=== PATIENT | female | born 1935 | race Caucasian/White ===

== ENCOUNTER 2016-08-08 | Outpatient (CLI) | END 2016-08-08 09:13 | disposition critical access hospital (66) | CPT/HCPCS: A0425; A0429 ==

== ENCOUNTER 2016-08-08 09:34 | Emergency (ER) | END 2016-08-08 13:56 | disposition home or self-care (01) ==

== ENCOUNTER 2020-04-10 20:37 | Outpatient (CLI) | payer OTHER | END 2020-04-10 20:38 | disposition critical access hospital (66) | LOC: EMS 20:37 | PROVIDERS: ATTEND Surgery | DX: R55 Syncope and collapse (principal); R53.1 Weakness; R53.83 Other fatigue | CPT/HCPCS: A0425; A0427 ==

== ENCOUNTER 2020-04-10 20:58 | Emergency (ER) | payer MEDICARE, OTHER ==
[2020-04-10] MEDS ORDERED: SODIUM CHLORIDE 0.9% 1,000 ML IV STA (21:19)
--- NOTE | 2020-04-10 21:26 | ED Physician Documentation ---
PD HPI SYNCOPE - Stated complaint Stated Complaint: SYNCOPE - Chief complaint Chief Complaint: Neuro - History obtained from History obtained from: Patient, Family, EMS - History of Present Illness Witnessed: Witnessed Timing - onset: Today Duration: Seconds Preceding symptoms: None Associated symptoms: Nausea / vomiting, Other (light headed and dizzy) Contributing factors: Emotional upset (still greiving over husbands in November) Injury occurred: None Treatment HOST/HOSTESS RESTAURANT: Fluids Similar symptoms before: Has not had sx before Recently seen: Not recently seen - Additional information Additional information: 84-year-old female with history of hypertension and spinal stenosis was sitting playing ScrMobicowble this evening when she stood up and had a sudden syncopal episode. She states that she had no warning for this and she recalls when she came to she was nauseous vomited and felt dizzy and lightheaded. She did not injure herself with the incident. She did not feel ill prior to this and felt that over the past week she has had her normal health. She has no specific symptoms. Review of Systems Constitutional: denies: Fever, Chills Eyes: denies: Decreased vision Ears: denies: Ear pain Nose: denies: Congestion Throat: denies: Sore throat Cardiac: denies: Chest pain / pressure, Palpitations Respiratory: denies: Dyspnea, Cough GI: reports: Nausea (With the episode), Vomiting. denies: Abdominal Pain, Constipation, Diarrhea : denies: Dysuria, Frequency Skin: denies: Rash Musculoskeletal: reports: Back pain (Severe). denies: Neck pain, Extremity pain Neurologic: reports: Syncope. denies: Generalized weakness, Focal weakness, Numbness, Seizure, Altered mental status, Headache, Head injury PD PAST MEDICAL HISTORY - Past Medical History Cardiovascular: Hypertension, High cholesterol Musculoskeletal: Osteoarthritis, Chronic back pain - Past Surgical History Past Surgical History: No - Present Medications Home Medications: Ambulatory Orders Medication Instructions Recorded Confirmed Aspirin [Aspir-Low] 0 mg 08/08/16 Atenolol 0 mg 08/08/16 Ondansetron Odt [Zofran] 4 mg TL Q6H PRN #10 tablet 08/08/16 Simvastatin 0 mg 08/08/16 - Allergies Allergies/Adverse Reactions: Allergies Allergy/AdvReac Type Severity Reaction Status Date / Time No Known Drug Allergies Allergy Verified 08/08/16 09:40 - Social History Does the pt smoke?: No Smoking Status: Never smoker Does the pt drink ETOH?: Yes Does the pt have substance abuse?: No PD ED PE NORMAL - Vitals Vital signs reviewed: Yes (Normal) - General General: Alert and oriented X 3, No acute distress, Well developed/nourished, Other (Patient appears pale and dry) - HEENT HEENT: Atraumatic, PERRL - Neck Neck: Supple, no meningeal sign, No bony TTP - Cardiac Cardiac: RRR, No murmur - Respiratory Respiratory: No respiratory distress, Clear bilaterally - Abdomen Abdomen: Normal bowel sounds, Soft, Non tender, Non distended, No organomegaly - Back Back: No CVA TTP, No spinal TTP - Derm Derm: Normal color, Warm and dry, No rash - Extremities Extremities: No deformity, Normal ROM s pain, No edema - Neuro Neuro: Alert and oriented X 3, launch manager 2-12 intact, No motor deficit, No sensory deficit, Normal speech Eye Opening: To Voice Motor: Obeys Commands Verbal: Oriented GCS Score: 14 - Psych Psych: Normal mood, Normal affect Results - Vitals Vitals: Vital Signs - 24 hr 04/10/20 04/10/20 04/10/20 21:21 21:41 21:59 Temperature 36.2 C L Heart Rate 63 66 71 Respiratory 20 16 16 Rate Blood Pressure 130/72 137/64 H O2 Saturation 97 100 100 04/10/20 04/10/20 04/11/20 22:32 23:02 00:02 Temperature Heart Rate 66 71 Respiratory 17 16 16 Rate Blood Pressure 112/69 116/70 O2 Saturation 97 94 04/11/20 04/11/20 04/11/20 01:14 01:47 02:05 Temperature Heart Rate 71 71 Respiratory 17 17 11 L Rate Blood Pressure 132/67 H 131/72 H O2 Saturation 96 98 04/11/20 02:30 Temperature Heart Rate 70 Respiratory 16 Rate Blood Pressure 131/72 H O2 Saturation 99 Oxygen O2 Source Room air - EKG (time done) 2104 Rate: Rate (enter#) (62) Rhythm: NSR [place]: LAD Intervals: Prolonged MS Ischemia: Normal ST segments, Q waves Compare to prior EKG: Old EKG unavailable Computer interpretation: Agree with computer - Labs Labs: Laboratory Tests 04/10/20 04/10/20 04/10/20 21:35 21:35 21:35 WBC 6.3 RBC 4.04 L Hgb 13.8 Hct 41.5 MCV 102.7 H MCH 34.2 H MCHC 33.3 RDW 12.0 Plt Count 207 MPV 8.9 Neut # (Auto) 4.7 Lymph # (Auto) 1.0 L [place] # (Auto) 0.5 Eos # (Auto) 0.0 Baso # (Auto) 0.0 Absolute Nucleated RBC 0.00 Nucleated RBC % 0.0 Sodium 131 L Potassium 4.0 Chloride 95 L Carbon Dioxide 23 Anion Gap 13.0 BUN 23 H Creatinine 0.8 Estimated GFR (MDRD) 68 L Glucose 85 Lactic Acid Calcium 9.4 Total Bilirubin 0.7 AST 28 ALT 22 Alkaline Phosphatase 48 Troponin I High Sens B-Natriuretic Peptide 25 Total Protein 8.0 Albumin 4.4 Globulin 3.6 Albumin/Globulin Ratio 1.2 Lipase 41 Urine Color Urine Clarity Urine pH Ur Specific [place] Urine Protein Urine Glucose (UA) Urine Ketones Urine Occult Blood Urine Nitrite Urine Bilirubin Urine Urobilinogen Ur Leukocyte Esterase Ur Microscopic Review Urine Culture Comments 04/10/20 04/10/20 04/11/20 21:35 21:35 01:00 WBC RBC Hgb Hct MCV MCH MCHC RDW Plt Count MPV Neut # (Auto) Lymph # (Auto) [place] # (Auto) Eos # (Auto) Baso # (Auto) Absolute Nucleated RBC Nucleated RBC % Sodium Potassium Chloride Carbon Dioxide Anion Gap BUN Creatinine Estimated GFR (MDRD) Glucose Lactic Acid 2.9 H Calcium Total Bilirubin AST ALT Alkaline Phosphatase Troponin I High Sens 3.2 B-Natriuretic Peptide Total Protein Albumin Globulin Albumin/Globulin Ratio Lipase Urine Color YELLOW Urine Clarity CLEAR Urine pH 6.5 Ur Specific [place] 1.020 Urine Protein NEGATIVE Urine Glucose (UA) NEGATIVE Urine Ketones TRACE Urine Occult Blood TRACE-LYSE Urine Nitrite NEGATIVE Urine Bilirubin NEGATIVE Urine Urobilinogen 0.2 (NORMAL) Ur Leukocyte Esterase NEGATIVE Ur Microscopic Review NOT INDICATED Urine Culture Comments NOT INDICATED - Rads (name of study) chest Radiology: Prelim report reviewed (Impression: 1. No acute findings.), EMP read indepedently, See rad report PD MEDICAL DECISION MAKING - ED course Complexity details: reviewed old records, reviewed results, re-evaluated patient, considered differential, d/w patient, d/w family ED course: 84-year-old female who had a syncopal episode when she stood up from playing Scrabble is found to be significantly dehydrated. She has elevation in her BUN isolated as well as an elevated lactate. She indicates that she has had a can of Ensure to drink today. She is living in a non-air conditioned home. She is administered intravenous saline and after the first liter is and she feels some better, but has not produced urine. A second liter is run in and about the time she has received 1500 mL's of saline when I returned to her room she is feeling much better she has a broad smile on her face and her eyes are wide. She vows to drink more fluids. Departure - Departure Disposition: 01 Home, Self Care Clinical Impression: Dehydration Syncope Qualifiers: Syncope type: heat syncope Encounter type: initial encounter Qualified Code(s): T67.1XXA - Heat syncope, initial encounter Condition: Stable Instructions: ED Dehydration, ED Syncope Vasovagal Follow-Up: CHANDA BRAY MD [Primary Care Provider] - Discharge Date/Time: 04/11/20 02:36
[2020-04-10 21:51] LABS: BASOPHILS % (AUTO) 0.6 %; EOSINOPHILS % (AUTO) 0.6 %; HGB - HEMOGLOBIN 13.8 g/dL (12.0-16.0); LYMPHOCYTES % (AUTO) 15.5 %; MEAN CORPUSCULAR HEMOGLOBIN 34.2 pg (27.0-31.0); MEAN CORPUSCULAR HGB CONC 33.3 g/dL (32.0-36.0); MEAN CORPUSCULAR VOLUME 102.7 fL (81.0-99.0); MEAN PLATELET VOLUME 8.9 fL (7.9-10.8); MONOCYTES # (AUTO) 0.5 10^3/uL (0.0-1.0); MONOCYTES % (AUTO) 8.2 %; NEUTROPHILS # (AUTO) 4.7 10^3/uL (1.5-6.6); NEUTROPHILS % (AUTO) 74.6 %; PLT - PLATELET COUNT 207 10^3/uL (130-450); RED BLOOD COUNT 4.04 10^6/uL (4.20-5.40); WHITE BLOOD COUNT 6.3 x10^3/uL (4.8-10.8)
[2020-04-10 22:15] LABS: ALBUMIN 4.4 g/dL (3.2-5.5); ALBUMIN/GLOBULIN RATIO 1.2 (1.0-2.2); BILIRUBIN,TOTAL 0.7 mg/dL (0.2-1.0); CALCIUM 9.4 mg/dL (8.5-10.3); CREATININE 0.8 mg/dL (0.4-1.0)
[2020-04-11] MEDS ORDERED: SODIUM CHLORIDE 0.9% 1,000 ML IV STA (00:02)
[2020-04-11 01:48] LABS: BILIRUBIN,URINE NEGATIVE (NEGATIVE); GLUCOSE, URINE (UA) NEGATIVE (NEGATIVE); KETONES,URINE (UA) TRACE mg/dL (NEGATIVE); LEUKOCYTE ESTERASE, URINE NEGATIVE (NEGATIVE); NITRITE,URINE NEGATIVE (NEGATIVE); OCCULT BLOOD,URINE TRACE-LYSE (NEGATIVE); PH,URINE 6.5 PH (5.0-7.5); PROTEIN,URINE NEGATIVE (NEGATIVE); UROBILINOGEN,URINE 0.2 (NORMAL) E.U./dL (NORMAL)
[2020-04-11 01:49] LABS: CLARITY,URINE CLEAR (CLEAR)
[2020-04-11 02:05] VITALS: BP 131/72
--- NOTE | 2020-04-11 09:21 | XRAY Report ---
PROCEDURE: Chest 1 View X-Ray INDICATIONS: chest pain TECHNIQUE: One view of the chest was acquired. COMPARISON: None available on the PACS system at the time of this dictation. FINDINGS: Surgical changes and devices: None. Lungs and pleura: No pleural effusions or pneumothorax. Lungs are clear. Mediastinum: The aorta is prominent and tortuous. The cardiac contours are within normal limits. Bones and chest wall: No suspicious bony lesions. Age-appropriate degenerative changes are seen. M inimal S-shaped sclerotic curvature is seen. Overlying soft tissues appear unremarkable. IMPRESSION: No significant abnormality is seen for age. Note: No significant discrepancy from the preliminary report. Reviewed by: Cody Vitale MD on 04/11/2020 8:20 AM CLARE Approved by: Cody Vitale MD on 04/11/2020 8:20 AM CLARE Station ID: [id number]
== END 2020-04-11 02:36 | disposition home or self-care (01) ==
LOC: EDUNIT# → EDBD → ED 20:58
DX: E86.0 Dehydration (principal); T67.1XXA Heat syncope, initial encounter
CPT/HCPCS: 36415; 71045; 80053; 81001; 81003; 83605; 83690; 83880; 84484; 85025; 87086; 93005; 96360; 96361; 99284

== ENCOUNTER 2021-04-22 14:54 | Outpatient (CLI) | payer MEDICARE | END 2021-04-22 14:55 | disposition critical access hospital (66) | LOC: EMS 14:54 | DX: R53.1 Weakness (principal) | CPT/HCPCS: A0425; A0427 ==

== ENCOUNTER 2021-04-22 15:26 | Inpatient (IN) | payer MEDICARE ==
--- NOTE | 2021-04-22 16:01 | ED Physician Documentation ---
History of Present Illness - Stated complaint Stated Complaint: NEAR SYNCOPAL - Chief complaint Chief Complaint: General - History obtained from History obtained from: Patient - Additonal information Additional information: 5-year-old woman who was working out in her garden weeding When her neighbor sat high so she stood up quickly, lost her balance and fell onto her left side. This happened approximately an hour prior to presentation. She did not hit her head. She does not know if she passed out but she was told that she vomited 1 time and she does not remember it. Her only pain is to move her left hip. She denies any neck pain. Has no numbness or tingling into the arms or legs. She has not recently been ill. Review of Systems Constitutional: denies: Fever Eyes: denies: Loss of vision Ears: denies: Tinnitus/ringing Nose: denies: Congestion Throat: denies: Sore throat Cardiac: denies: Palpitations Respiratory: denies: Dyspnea GI: reports: Vomiting. denies: Nausea : denies: Dysuria Musculoskeletal: reports: Joint pain (L hip pain). denies: Neck pain Neurologic: reports: LOC (Possible). denies: Headache, Head injury PD PAST MEDICAL HISTORY - Past Medical History Cardiovascular: Hypertension, High cholesterol Respiratory: None Neuro: None Endocrine/Autoimmune: None GI: None MANAGER CLINICAL PHARMACY: None : None HEENT: None Psych: None Musculoskeletal: Osteoarthritis, Chronic back pain Derm: None - Past Surgical History Past Surgical History: No - Present Medications Home Medications: Ambulatory Orders Medication Instructions Recorded Confirmed Simvastatin 0 mg DAILY 08/08/16 traMADol [Ultram] 1 tab DAILY PRN 04/22/21 04/22/21 - Allergies Allergies/Adverse Reactions: Allergies Allergy/AdvReac Type Severity Reaction Status Date / Time No Known Drug Allergies Allergy Verified 04/22/21 15:31 - Social History Does the pt smoke?: No Smoking Status: Never smoker Does the pt drink ETOH?: Yes Does the pt have substance abuse?: No - Immunizations Immunizations are current?: Yes - POLST Patient has POLST: No PD ED PE NORMAL - Vitals Vital signs reviewed: Yes - General General: Alert and oriented X 3, No acute distress, Well developed/nourished - HEENT HEENT: Atraumatic, PERRL, EOMI - Neck Neck: Other (Patinet in C-collar, no pain to ML palpation or movement. Clinically cleared and collar removed) - Cardiac Cardiac: RRR, No murmur - Respiratory Respiratory: No respiratory distress, Clear bilaterally - Abdomen Abdomen: Normal bowel sounds, Soft, Non tender, Non distended - Extremities Extremities: No edema, Other (L hip tender over greater trochanter and along L thigh. 2+ dp pulses bilat. No knee pain bilat) - Neuro Neuro: Alert and oriented X 3, facilities maintenance technician 2-12 intact, No motor deficit, No sensory deficit, Normal speech - Psych Psych: Normal mood Results - Vitals Vitals: Vital Signs - 24 hr 04/22/21 04/22/21 15:25 15:53 Temperature 36.4 C L Heart Rate 69 62 Respiratory 16 8 L Rate Blood Pressure 131/61 H 124/69 O2 Saturation 93 93 Oxygen O2 Source Room air - Labs Labs: Laboratory Tests 04/22/21 04/22/21 04/22/21 17:18 17:18 17:18 WBC 11.1 H RBC 4.16 L Hgb 13.8 Hct 43.0 MCV 103.4 H MCH 33.2 H MCHC 32.1 RDW 12.4 Plt Count 197 MPV 8.4 Neut # (Auto) 9.5 H Lymph # (Auto) 0.8 L [place] # (Auto) 0.6 Eos # (Auto) 0.1 Baso # (Auto) 0.0 Absolute Nucleated RBC 0.00 Nucleated RBC % 0.0 PT 11.7 INR 1.1 Sodium Potassium Chloride Carbon Dioxide Anion Gap BUN Creatinine Estimated GFR (MDRD) Glucose Calcium Blood Type O POSITIVE Antibody Screen NEGATIVE 04/22/21 17:18 WBC RBC Hgb Hct MCV MCH MCHC RDW Plt Count MPV Neut # (Auto) Lymph # (Auto) [place] # (Auto) Eos # (Auto) Baso # (Auto) Absolute Nucleated RBC Nucleated RBC % PT INR Sodium 133 L Potassium 4.3 Chloride 98 L Carbon Dioxide 26 Anion Gap 9.0 BUN 17 Creatinine 0.7 Estimated GFR (MDRD) 79 L Glucose 104 H Calcium 9.8 Blood Type Antibody Screen PD MEDICAL DECISION MAKING - ED course ED course: X-ray was equivocal for possible trochanteric fracture. CT scan has been ordered and is pending at this time. Patient declined any pain medications. Care will be turned over to Dr. Mckeon to follow-up on the CT.
--- NOTE | 2021-04-22 16:36 | XRAY Report ---
PROCEDURE: Hip w/Pelvis 2-3V LT INDICATIONS: L hip pain TECHNIQUE: AP pelvis with lateral view(s) of the left hip(s). COMPARISON: None. FINDINGS: Bones: Question nondisplaced crack of trochanteric region of the left hip. This is not definite. No d islocation. Mild degenerative change. Pelvic ring appears intact. No suspicious bony lesions. Soft tissues: The visualized bowel gas pattern is normal. No suspicious soft tissue calcifications. Calcified uterine fibroid. IMPRESSION: Question nondisplaced crack of the trochanteric region of the left hip. Comment: Consider CT left hip. Reviewed by: Abdirahman Lau MD on 04/22/2021 4:35 PM PDT Approved by: Abdirahman Lau MD on 04/22/2021 4:35 PM PDT Station ID: [id number]
[2021-04-22 17:25] LABS: BASOPHILS % (AUTO) 0.3 %; EOSINOPHILS # (AUTO) 0.1 10^3/uL (0.0-0.7); EOSINOPHILS % (AUTO) 0.5 %; HGB - HEMOGLOBIN 13.8 g/dL (12.0-16.0); LYMPHOCYTES # (AUTO) 0.8 10^3/uL (1.5-3.5); LYMPHOCYTES % (AUTO) 7.1 %; MEAN CORPUSCULAR HEMOGLOBIN 33.2 pg (27.0-31.0); MEAN CORPUSCULAR HGB CONC 32.1 g/dL (32.0-36.0); MEAN CORPUSCULAR VOLUME 103.4 fL (81.0-99.0); MEAN PLATELET VOLUME 8.4 fL (7.9-10.8); MONOCYTES # (AUTO) 0.6 10^3/uL (0.0-1.0); MONOCYTES % (AUTO) 5.4 %; NEUTROPHILS # (AUTO) 9.5 10^3/uL (1.5-6.6); NEUTROPHILS % (AUTO) 85.8 %; PLT - PLATELET COUNT 197 10^3/uL (130-450); RED BLOOD COUNT 4.16 10^6/uL (4.20-5.40); RED CELL DISTRIBUTION WIDTH 12.4 % (12.0-15.0); WHITE BLOOD COUNT 11.1 x10^3/uL (4.8-10.8)
[2021-04-22 17:35] LABS: CALCIUM 9.8 mg/dL (8.5-10.3); CREATININE 0.7 mg/dL (0.4-1.0); INR 1.1 (0.8-1.2); POTASSIUM 4.3 mmol/L (3.5-5.0); PT - PROTHROMBIN TIME 11.7 secs (9.9-12.6)
--- NOTE | 2021-04-22 19:45 | CT Report ---
PROCEDURE: LOWER EXTREMITY WO - LT INDICATIONS: L hip TECHNIQUE: Noncontrast 3 mm axial sections acquired of the left, with coronal and sagittal reformats. COMPARISON: Same day left hip and pelvis radiographs. CT abdomen and pelvis without contrast 7. FINDINGS: Image quality: Excellent. Bones: There is cortical step-off at the left anterior acetabulum, (3/131). This is consistent with no discrete fracture. Cortical step-off of the left acetabulum, (5/125). Minimal cortical irregularit y at the left pubic symphysis, (5/73). No fracture of the left hip is identified. 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 Advanced degenerative change at the pubic symphysis. Soft tissues: Small hematoma at the left groin and left pelvic sidewall. Calcified uterine fibroids. Circumferential calcified aortic plaque. Diverticulosis. Suspect small left inguinal hernia. Right o varian cyst measuring 4.1 x 1.9 cm. IMPRESSION: 1. Fracture of the left anterior acetabulum without significant displacement. 2. Nondisplaced fracture of the left sacrum. 3. Suspect fracture at the left pubic symphysis. 4. Left groin hematoma and pelvic sidewall hematoma. 5. Right ovarian cyst measuring approximately 4.1 cm. Recommend initial further evaluation with pelvi c ultrasound. Reviewed by: Adan Dawkins MD on 04/22/2021 6:44 PM CLARE Approved by: Adan Dawkins MD on 04/22/2021 6:44 PM AKCHRISTOPHER Station ID: [id number]
[2021-04-22] MEDS ORDERED: oxyCODONE 5 MG TABLET PO STA (20:22)
[2021-04-22] MEDS ORDERED: BACITRACIN ZINC OINT 1 PACKET TOP STA (21:12)
--- NOTE | 2021-04-22 21:21 | ED Physician Documentation ---
Departure - Departure Disposition: ED Place in Observation Clinical Impression: Sacral fracture Qualifiers: Encounter type: initial encounter Zone of sacrum fracture: unspecified portion of sacrum Fracture type: closed Qualified Code(s): S32.10XA - Unspecified fracture of sacrum, initial encounter for closed fracture Acetabular fracture Qualifiers: Encounter type: initial encounter Sublocation of acetabulum: anterior wall Fracture type: closed Fracture alignment: nondisplaced Laterality: left Qualified Code(s): S32.415A - Nondisplaced fracture of anterior wall of left acetabulum, initial encounter for closed fracture Syncope Qualifiers: Syncope type: unspecified Qualified Code(s): R55 - Syncope and collapse Condition: Stable Results - Vitals Vitals: Vital Signs - 24 hr 04/22/21 04/22/21 04/22/21 15:25 15:53 19:31 Temperature 36.4 C L Heart Rate 69 62 80 Respiratory 16 8 L 17 Rate Blood Pressure 131/61 H 124/69 130/77 O2 Saturation 93 93 94 04/22/21 04/22/21 21:17 21:40 Temperature 37 C 35.7 C L Heart Rate 75 82 Respiratory 16 16 Rate Blood Pressure 126/65 118/80 O2 Saturation 94 98 Oxygen O2 Source Room air - EKG (time done) 2152 Rate: Rate (enter#) (75) Rhythm: NSR [place]: Anterior hemiblock (LAFB) Intervals: Normal OR QRS: Normal Ischemia: Normal ST segments, Q waves - Labs Labs: Laboratory Tests 04/22/21 04/22/21 04/22/21 17:18 17:18 17:18 WBC 11.1 H RBC 4.16 L Hgb 13.8 Hct 43.0 MCV 103.4 H MCH 33.2 H MCHC 32.1 RDW 12.4 Plt Count 197 MPV 8.4 Neut # (Auto) 9.5 H Lymph # (Auto) 0.8 L [place] # (Auto) 0.6 Eos # (Auto) 0.1 Baso # (Auto) 0.0 Absolute Nucleated RBC 0.00 Nucleated RBC % 0.0 PT 11.7 INR 1.1 Sodium Potassium Chloride Carbon Dioxide Anion Gap BUN Creatinine Estimated GFR (MDRD) Glucose Calcium Troponin I High Sens Blood Type O POSITIVE Antibody Screen NEGATIVE 04/22/21 04/22/21 17:18 17:18 WBC RBC Hgb Hct MCV MCH MCHC RDW Plt Count MPV Neut # (Auto) Lymph # (Auto) [place] # (Auto) Eos # (Auto) Baso # (Auto) Absolute Nucleated RBC Nucleated RBC % PT INR Sodium 133 L Potassium 4.3 Chloride 98 L Carbon Dioxide 26 Anion Gap 9.0 BUN 17 Creatinine 0.7 Estimated GFR (MDRD) 79 L Glucose 104 H Calcium 9.8 Troponin I High Sens 3.8 Blood Type Antibody Screen - Rads (name of study) cxr Radiology: Final report received, EMP read contemporaneously, See rad report (no acute disease) CT L hip Radiology: Final report received, EMP read contemporaneously, See rad report PD MEDICAL DECISION MAKING - ED course Complexity details: reviewed results, re-evaluated patient, considered differential, d/w patient, d/w technical marketing consultant ED course: Patient is an 85-year-old female who was turned over to me by Dr. Rodriguez, see her note for full H&P. The patient was found to have a nondisplaced acetabular fracture, sacral fracture and possible pubic symphysis fracture. Discussed the case with Dr. Page, orthopedics who recommends nonweightbearing left lower extremity, a walker for home and follow-up in the office. Pain is well controlled and patient is able to ambulate to the bathroom and back. Just prior to discharge, the patient stood up and her eyes "rolled back in her head" according to the earth moving technician. She then passed out. She was not on the monitor at this point. She then had emesis x1. The entire episode lasted about 3 to 4 minutes. No seizure activity. When she was placed back on the monitor, she did appear to be in sinus rhythm. Given that she is now passed out twice in less than 24 hours, both accompanied by vomiting, we will place in the hospital overnight for observation. Discussed the case with Dr. Ruiz, hospitalist who accepts This document was made in part using voice recognition software. While efforts are made to proofread this document, sound alike and grammatical errors may occur.
[2021-04-22] MEDS ORDERED: SODIUM CHLORIDE 0.9% 1,000 ML IV STA (21:49)
[2021-04-22 22:55] LABS: B. PARAPERTUSSIS- RESP PCR PAN NOT DETECTED; B. PERTUSSIS- RESP PCR PANEL NOT DETECTED; C. PNEUMONIAE- RESP PCR PANEL NOT DETECTED; CORONAVIRUS 229E-RESP PCR NOT DETECTED; CORONAVIRUS HKU1-RESP PCR NOT DETECTED; CORONAVIRUS NL63-RESP PCR NOT DETECTED; CORONAVIRUS OC43-RESP PCR NOT DETECTED; HUMAN METAPNEUMOVIRUS NOT DETECTED; INFLUENZA A- RESP PCR PANEL NOT DETECTED; INFLUENZA B - RESP PCR PANEL NOT DETECTED; M. PNEUMONIAE- RESP PCR PANEL NOT DETECTED; PARAINFLUENZA VIRUS 1 NOT DETECTED; PARAINFLUENZA VIRUS 2 NOT DETECTED; PARAINFLUENZA VIRUS 3 NOT DETECTED; PARAINFLUENZA VIRUS 4 NOT DETECTED; RHINOVIRUS/ENTEROVIRUS NOT DETECTED; RSV- RESP PCR PANEL NOT DETECTED; SARS-CoV-2 -RESP PCR PANEL NOT DETECTED
[2021-04-22] MEDS ORDERED: SODIUM CHLORIDE FLUSH 0.9% 10 ML SYRINGE IVP PRN (23:22)
[2021-04-22] MEDS ORDERED: ONDANSETRON 4 MG/2 ML VIAL IVP PRN (23:22)
[2021-04-22] MEDS ORDERED: PROCHLORPERAZINE 10 MG/2 ML VIAL IVP PRN (23:22)
--- NOTE | 2021-04-22 23:32 | HISTORY & PHYSICAL EXAMINATION ---
History and Physical - History and Physical Chief complaint: Multiple syncopal episodes Source of history: ER signout, patient, medical record review History of present illness: The patient is a pleasant 85-year-old white female who is independent with activities of daily living still drives and cooks. Reviewing the past medical record she does have history of syncope at least dating back to a year however she cannot provide much detail about it and does not remember undergoing tests or evaluations. She was seen 2 weeks ago for a syncopal episode which was described as passing out and when regaining consciousness having an episode of nausea and vomiting. She was felt dehydrated received IV hydration and was sent home from the ER. This was at a different facility as I did not find the record in our hospital and this history was reported by our ER physician. On the afternoon of April 22 the patient was gardening, weeding at home when she fell hard on her left side and injured her hip. 911 was called and at the ER the patient was found with nondisplaced left acetabular fracture. As this was a nonoperative fracture discharge from the ER was planned. Patient was ready to get discharged, was already off residential monitor when she again had a witnessed syncopal episode which lasted about 45 seconds. During this time patient was not on the monitor. She had a pulse and she had respirations, she was just unconscious; went limp as it was described. When she regained consciousness she again had an episode of nausea and emesis. EKG showed sinus rhythm with left anterior fascicular block. Troponin was negative. Admission was requested for syncope work-up and close monitoring. I examined the patient in the ER. She got some oxycodone prior to my visit and was a bit somnolent. She confirmed the above listed history. She did not report chest pain, shortness of breath, dizziness or other symptoms prior to or after the syncopal episodes. She confirmed having episodes of passing out with subsequent nausea and vomiting but other than that she could not provide much detail. Regarding her tramadol use she stated she takes it for arthritis, on April 22 she did not take it at all. She takes it only as needed not more often than twice a day. Did not notice any side effects or adverse effects or the syncopal episodes being related to tramadol. 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 Her father had hypertension. She does not recall other chronic medical conditions in first-degree relatives. Social history and functional status: Lives with her son; mentions that her son has been a great support around the house. The patient still cooks and drives. Functional with activities of daily living. Advanced directive/CODE STATUS: CODE STATUS was discussed with the patient. She understood the topic being discussed and stated that she wishes to have DO NOT RESUSCITATE status. Does not want life support in case of emergency. Review of symptoms: 12 point review done, pertinent positives and negatives listed above at history present illness, there was no additional positive. Vital Signs - 24 hr 04/22/21 04/22/21 04/22/21 15:25 15:53 19:31 Temperature 36.4 C L Heart Rate 69 62 80 Heart Rate [ Sitting] Heart Rate [ Supine] Respiratory 16 8 L 17 Rate Blood Pressure 131/61 H 124/69 130/77 Blood Pressure [Sitting] Blood Pressure [Supine] O2 Saturation 93 93 94 04/22/21 04/22/21 04/22/21 21:17 21:40 22:05 Temperature 37 C 35.7 C L Heart Rate 75 82 76 Heart Rate [ Sitting] Heart Rate [ Supine] Respiratory 16 16 12 Rate Blood Pressure 126/65 118/80 108/64 Blood Pressure [Sitting] Blood Pressure [Supine] O2 Saturation 94 98 94 04/22/21 04/22/21 04/22/21 22:31 22:33 22:59 Temperature 96.7 C H Heart Rate 75 74 Heart Rate [ 77 Sitting] Heart Rate [ 73 Supine] Respiratory 12 14 Rate Blood Pressure 107/64 109/66 Blood Pressure 109/66 [Sitting] Blood Pressure 115/74 [Supine] O2 Saturation 94 95 04/22/21 23:43 Temperature Heart Rate 75 Heart Rate [ Sitting] Heart Rate [ Supine] Respiratory 12 Rate Blood Pressure 125/72 Blood Pressure [Sitting] Blood Pressure [Supine] O2 Saturation 94 Oxygen O2 Source Room air Physical exam: General: The patient is a well-developed elderly female Without acute distress HEENT: Moist oral mucosa Respiratory: No increased work of breathing, clear to auscultation bilaterally CVS: S1, S2, regular Abdomen: Benign abdomen, bowel tones present, nontender, nondistended. Neurologic: Lethargic but easily arousable, answers questions appropriately, oriented but reports being drowsy and forgetful; no focal lateralizing sign. Psych: Cooperative. Lymph: No edema. Skin: Pallor. Musculoskeltal: Arthritic changes, left hip tenderness Diagnostic tests: Laboratory Tests 04/22/21 04/22/21 04/22/21 17:18 17:18 17:18 WBC 11.1 H RBC 4.16 L Hgb 13.8 Hct 43.0 MCV 103.4 H MCH 33.2 H MCHC 32.1 RDW 12.4 Plt Count 197 MPV 8.4 Neut # (Auto) 9.5 H Lymph # (Auto) 0.8 L [place] # (Auto) 0.6 Eos # (Auto) 0.1 Baso # (Auto) 0.0 Absolute Nucleated RBC 0.00 Nucleated RBC % 0.0 PT 11.7 INR 1.1 Sodium Potassium Chloride Carbon Dioxide Anion Gap BUN Creatinine Estimated GFR (MDRD) Glucose Calcium Troponin I High Sens Nasal Adenovirus (PCR) Nasal B. parapertussis DNA (PCR) Nasal Coronavir 229E PCR Nasal Coronavir HKU1 PCR Nasal Coronavir NL63 PCR Nasal Coronavir OC43 PCR Nasal Enterovir/Rhinovir PCR Nasal Influenza B PCR Nasal Influenza A PCR Nasal Parainfluen 1 PCR Nasal Parainfluen 2 PCR Nasal Parainfluen 3 PCR Nasal Parainfluen 4 PCR Nasal RSV (PCR) Nasal B.pertussis DNA PCR Nasal C.pneumoniae (PCR) Lino Human Metapneumo PCR Nasal M.pneumoniae (PCR) Nasal SARS-CoV-2 (PCR) Blood Type O POSITIVE Antibody Screen NEGATIVE 04/22/21 04/22/21 04/22/21 17:18 17:18 21:53 WBC RBC Hgb Hct MCV MCH MCHC RDW Plt Count MPV Neut # (Auto) Lymph # (Auto) [place] # (Auto) Eos # (Auto) Baso # (Auto) Absolute Nucleated RBC Nucleated RBC % PT INR Sodium 133 L Potassium 4.3 Chloride 98 L Carbon Dioxide 26 Anion Gap 9.0 BUN 17 Creatinine 0.7 Estimated GFR (MDRD) 79 L Glucose 104 H Calcium 9.8 Troponin I High Sens 3.8 Nasal Adenovirus (PCR) NOT DETECTED Nasal B. parapertussis DNA (PCR) NOT DETECTED Nasal Coronavir 229E PCR NOT DETECTED Nasal Coronavir HKU1 PCR NOT DETECTED Nasal Coronavir NL63 PCR NOT DETECTED Nasal Coronavir OC43 PCR NOT DETECTED Nasal Enterovir/Rhinovir PCR NOT DETECTED Nasal Influenza B PCR NOT DETECTED Nasal Influenza A PCR NOT DETECTED Nasal Parainfluen 1 PCR NOT DETECTED Nasal Parainfluen 2 PCR NOT DETECTED Nasal Parainfluen 3 PCR NOT DETECTED Nasal Parainfluen 4 PCR NOT DETECTED Nasal RSV (PCR) NOT DETECTED Nasal B.pertussis DNA PCR NOT DETECTED Nasal C.pneumoniae (PCR) NOT DETECTED Lino Human Metapneumo PCR NOT DETECTED Nasal M.pneumoniae (PCR) NOT DETECTED Nasal SARS-CoV-2 (PCR) NOT DETECTED Blood Type Antibody Screen Imaging/ x rays and CT reviewed per electronic medical record. Assessment and plan: Active issues/diagnoses Trues syncopal episodes/including witnessed syncope in the ER/ likely cardiac syncope could be related to bradycardia, orthostatic change/vasovagal Fall in the setting of syncope Nondisplaced left acetabular fracture Multiple pelvic fractures including sacral, symphysis and pubic Left groin and pelvic sidewall hematoma secondary to trauma Incidental finding of ovarian cyst Ambulatory dysfunction/self-care deficit secondary to the above acute fractures Plan and orders: Admitted as inpatient Telemetry monitoring, echocardiogram, repeat troponin in the morning Orthostatic vital signs Urine analysis CT scan of the brain, carotid ultrasound DVT prophylaxis with SCDs, no pharmacologic prophylaxis in the setting of pelvic hematoma and increased bleeding risk PT, OT evaluation; CM consult During the daytime orthopedic consult regarding acetabular fracture and multiple pelvic fractures Consider ultrasound for ovarian lesion DNR Tramadol could have side effect of syncopes/hypotension Attestation: I certify that the patient meets inpatient criteria, based on the admission diagnosis, and the above assessment, findings and plan; she is expected to be hospitalized for more than 48 hours and discharge home or transfer to other facility in less than 96 hrs.
[2021-04-23] MEDS: KETOROLAC 15 MG/ML VIAL IVP PRN ×3 (00:12→17:10)
[2021-04-23] MEDS: ACETAMINOPHEN 500 MG TABLET PO SCH ×3 (00:13→20:31)
[2021-04-23] MEDS: SODIUM CHLORIDE FLUSH 0.9% 10 ML SYRINGE IVP SCH ×4 (00:13→23:33)
[2021-04-23] MEDS: MORPHINE 2 MG/ML CARPUJECT IVP PRN (01:35)
[2021-04-23] MEDS ORDERED: SODIUM CHLORIDE 0.9% 1,000 ML IV ONE (06:28)
--- NOTE | 2021-04-23 07:05 | CT Report ---
PROCEDURE: HEAD WO INDICATIONS: syncope TECHNIQUE: Noncontrast 4.5 mm thick angled axial sections acquired from the foramen magnum to the vertex. For r adiation dose reduction, the following was used: automated exposure control, adjustment of mA and/or kV according to patient size. COMPARISON: None. FINDINGS: Image quality: Excellent. CSF spaces: Basal cisterns are patent. No extra-axial fluid collections. Ventricles are normal in size and shape. Brain: No midline shift. No intracranial masses or hemorrhage. Moderate chronic ischemic white kristen er disease with volume loss. Skull and face: Calvarium and visualized facial bones are intact, without suspicious lesions. Sinuses: Visualized sinuses and mastoids are clear. IMPRESSION: No acute intracranial abnormality. Findings above correspond with preliminary findings by [facility]. Reviewed by: Phoenix Winston on 04/23/2021 7:04 AM PDT Approved by: Phoenix Winston on 04/23/2021 7:04 AM PDT Station ID: [id number]
--- NOTE | 2021-04-23 07:06 | XRAY Report ---
PROCEDURE: Chest 1 View X-Ray INDICATIONS: chest pain TECHNIQUE: One view of the chest was acquired. COMPARISON: FINDINGS: Surgical changes and devices: None. Lungs and pleura: No pleural effusions or pneumothorax. Lungs are clear. Mediastinum: Mediastinal contours appear normal. Heart size is normal. Bones and chest wall: No suspicious bony lesions. Overlying soft tissues appear unremarkable. IMPRESSION: No acute cardiopulmonary abnormality Reviewed by: Phoenix Winston on 04/23/2021 7:04 AM PDT Approved by: Phoenix Winston on 04/23/2021 7:04 AM PDT Station ID: [id number]
[2021-04-23] MEDS ORDERED: HEPARIN 5,000 UNIT/ML VIAL SUBQ SCH (09:00)
[2021-04-23] MEDS: polyethylene glycoL 3350 17 GM PACKET PO SCH (09:06)
[2021-04-23 11:28] LABS: BILIRUBIN,URINE NEGATIVE (NEGATIVE); GLUCOSE, URINE (UA) NEGATIVE (NEGATIVE); KETONES,URINE (UA) 15 mg/dL (NEGATIVE); LEUKOCYTE ESTERASE, URINE TRACE (NEGATIVE); NITRITE,URINE NEGATIVE (NEGATIVE); OCCULT BLOOD,URINE NEGATIVE (NEGATIVE); PH,URINE 6.5 PH (5.0-7.5); PROTEIN,URINE NEGATIVE (NEGATIVE); UROBILINOGEN,URINE 0.2 (NORMAL) E.U./dL (NORMAL)
[2021-04-23 11:29] LABS: CLARITY,URINE CLEAR (CLEAR)
[2021-04-23 11:35] LABS: BACTERIA,URINE Few /HPF (None Seen); RBC,URINE 0-5 /HPF (0-5); SQUAMOUS EPITHELIAL CELL,UR FEW Squamous (<= Few); WBC,URINE 0-3 /HPF (0-5)
--- NOTE | 2021-04-23 11:40 | PHARMACY PROGRESS NOTE ---
- Best Possible Medication History Admit Date and Time: 04/22/21 1305 Processed by: Pharmacy Medication History completed: Yes Patient Interview: Completed (PATIENT REPORTS SHE TAKES SIMVASTAIN AT HOME, DOES NOT KNOW THE DOSAGE AND PHARMACY UNABLE TO TRACK DOWN AFTER CALLING 2 PHARMACIES) As the person ultimately responsible for medication therapy, providers are able to order a medication from an existing home medication list in [facility] via the "Reconcile Routine" prior to Confirmation of that medication by windows server support technician. Such practice is discouraged except when the physician, in their clinical judgment, deems that a medical need exists for a medication without regard to previous use.
--- NOTE | 2021-04-23 13:17 | PROVIDER PROGRESS NOTE ---
Assessment/Plan - Problem List (1) Syncope Qualifiers: Syncope type: unspecified Qualified Code(s): R55 - Syncope and collapse Assessment/Plan: pt has hx of syncope, had syncope at home and at ER of hospital. ECHO and carotid study are pending. troponin is negative, EKG is SR. Glucose is 104. we will followup with image study. (2) Falls Assessment/Plan: pt has falls at home which lead pt has multiple fractures. we will have syncope study, PT/OT Evaluation and treatment, Fall precaution in the hospital. We will hold orthostatic vital signs study because patient has fractures at hip and pelvis. (3) Acetabular fracture Qualifiers: Encounter type: initial encounter Sublocation of acetabulum: anterior wall Fracture type: closed Fracture alignment: nondisplaced Laterality: left Qualified Code(s): S32.415A - Nondisplaced fracture of anterior wall of left acetabulum, initial encounter for closed fracture Assessment/Plan: CAT scan show patient had left acetabular, Sacrum, symphysis fracture from pt's fall. We will continue pain control, continue PT and OT evaluation and treatment, consult with social work for replacement - Current Meds Current Meds: Current Medications Generic Name Dose Route Start Last Admin Trade Name Freq PRN Reason Stop Dose Admin Acetaminophen 1,000 mg 04/22/21 23:45 04/23/21 09:07 Acetaminophen 500 Mg Tablet PO 1,000 mg BID LOGAN Administration Sodium Chloride 1,000 mls @ 100 mls/hr 04/23/21 06:28 04/23/21 06:42 Normal Saline 0.9% IV 04/23/21 16:27 100 mls/hr ONCE ONE Administration Ketorolac Tromethamine 15 mg 04/22/21 23:20 04/23/21 05:38 Ketorolac 15 Mg/Ml Vial IVP 04/27/21 23:19 15 mg Q6HR PRN Administration PAIN Morphine Sulfate 2 mg 04/22/21 23:22 04/23/21 01:35 Morphine 2 Mg/Ml Carpuject IVP 2 mg Q2HR PRN Administration Pain 8 to 10 Polyethylene Glycol 17 gm 04/23/21 09:00 04/23/21 09:06 Polyethylene Glycol 3350 17 Gm Packet PO 17 gm DAILY LOGAN Administration Sodium Chloride 10 ml 04/23/21 01:00 04/23/21 09:09 Sodium Chloride Flush 0.9% 10 Ml Syringe IVP Not Given 0100,0900,1700 LOGAN - Lab Result Fish Bone Diagrams: 04/22/21 17:18 04/22/21 17:18 - Additional Planning My Orders: My Active Orders 04/23/21 Orthopedics Consult [CONS] Routine 04/23/21 13:02 Pelvic w/Transvag+Doppler Comp [US] Routine 04/24/21 05:00 BMP - BASIC METABOLIC PANEL [CHEM] DAILYLAB CBC - COMP BLD CT W/AUTO DIFF [HEME] DAILYLAB 04/25/21 05:00 BMP - BASIC METABOLIC PANEL [CHEM] DAILYLAB CBC - COMP BLD CT W/AUTO DIFF [HEME] DAILYLAB 04/26/21 05:00 BMP - BASIC METABOLIC PANEL [CHEM] DAILYLAB CBC - COMP BLD CT W/AUTO DIFF [HEME] DAILYLAB 04/27/21 05:00 BMP - BASIC METABOLIC PANEL [CHEM] DAILYLAB CBC - COMP BLD CT W/AUTO DIFF [HEME] DAILYLAB 04/28/21 05:00 BMP - BASIC METABOLIC PANEL [CHEM] DAILYLAB CBC - COMP BLD CT W/AUTO DIFF [HEME] DAILYLAB Subjective - Subjective Patient Reports: Feeling Better Objective Vital Signs: Vital Signs - 24 hr 04/22/21 04/22/21 04/22/21 15:25 15:53 19:31 Temperature 36.4 C L Heart Rate 69 62 80 Heart Rate [ Activity] Heart Rate [ Brachial] Heart Rate [ Sitting] Heart Rate [ Standing] Heart Rate [ Supine] Respiratory 16 8 L 17 Rate Blood Pressure 131/61 H 124/69 130/77 Blood Pressure [Activity] Blood Pressure [Left Brachial artery] Blood Pressure [Right Brachial artery] Blood Pressure [Sitting] Blood Pressure [Standing] Blood Pressure [Supine] O2 Saturation 93 93 94 04/22/21 04/22/21 04/22/21 21:17 21:40 22:05 Temperature 37 C 35.7 C L Heart Rate 75 82 76 Heart Rate [ Activity] Heart Rate [ Brachial] Heart Rate [ Sitting] Heart Rate [ Standing] Heart Rate [ Supine] Respiratory 16 16 12 Rate Blood Pressure 126/65 118/80 108/64 Blood Pressure [Activity] Blood Pressure [Left Brachial artery] Blood Pressure [Right Brachial artery] Blood Pressure [Sitting] Blood Pressure [Standing] Blood Pressure [Supine] O2 Saturation 94 98 94 04/22/21 04/22/21 04/22/21 22:31 22:33 22:59 Temperature 35.9 C L Heart Rate 75 74 Heart Rate [ Activity] Heart Rate [ Brachial] Heart Rate [ 77 Sitting] Heart Rate [ Standing] Heart Rate [ 73 Supine] Respiratory 12 14 Rate Blood Pressure 107/64 109/66 Blood Pressure [Activity] Blood Pressure [Left Brachial artery] Blood Pressure [Right Brachial artery] Blood Pressure 109/66 [Sitting] Blood Pressure [Standing] Blood Pressure 115/74 [Supine] O2 Saturation 94 95 04/22/21 04/23/21 04/23/21 23:43 00:06 04:16 Temperature 37.4 C 36.7 C Heart Rate 75 Heart Rate [ Activity] Heart Rate [ 73 74 Brachial] Heart Rate [ Sitting] Heart Rate [ Standing] Heart Rate [ Supine] Respiratory 12 16 16 Rate Blood Pressure 125/72 Blood Pressure [Activity] Blood Pressure 145/67 H 123/62 [Left Brachial artery] Blood Pressure [Right Brachial artery] Blood Pressure [Sitting] Blood Pressure [Standing] Blood Pressure [Supine] O2 Saturation 94 96 93 04/23/21 04/23/21 08:05 10:45 Temperature 36.8 C Heart Rate Heart Rate [ 90 Activity] Heart Rate [ 71 Brachial] Heart Rate [ 87 Sitting] Heart Rate [ 90 Standing] Heart Rate [ 79 Supine] Respiratory 16 Rate Blood Pressure Blood Pressure 137/75 H [Activity] Blood Pressure [Left Brachial artery] Blood Pressure 136/65 H [Right Brachial artery] Blood Pressure 135/83 H [Sitting] Blood Pressure 137/75 H [Standing] Blood Pressure 127/67 [Supine] O2 Saturation 97 Oxygen O2 Source Room air I&O (Last 24 Hrs): Intake and Output Totals x24h 04/21/21 04/22/21 04/23/21 23:59 23:59 23:59 Intake Total 250 1200 Output Total 400 Balance 250 800 General: Alert, Oriented x3, Cooperative, Mild distress HEENT: Atraumatic Neck: Supple Lymphatic: no adenopathy Neuro: Alert, Non Focal, Oriented Times 3 Cardiovascular: Regular rate, Normal S1, Normal S2 Respiratory: Chest non-tender, No respiratory distress Abdomen: Normal bowel sounds, Soft Extremities: Normal pulses - Results Results: Laboratory Results WBC 11.1 x10^3/uL (4.8-10.8) H 04/22/21 17:18 RBC 4.16 10^6/uL (4.20-5.40) L 04/22/21 17:18 Hgb 13.8 g/dL (12.0-16.0) 04/22/21 17:18 Hct 43.0 % (37.0-47.0) 04/22/21 17:18 MCV 103.4 fL (81.0-99.0) H 04/22/21 17:18 MCH 33.2 pg (27.0-31.0) H 04/22/21 17:18 MCHC 32.1 g/dL (32.0-36.0) 04/22/21 17:18 RDW 12.4 % (12.0-15.0) 04/22/21 17:18 Plt Count 197 10^3/uL (130-450) 04/22/21 17:18 MPV 8.4 fL (7.9-10.8) 04/22/21 17:18 Neut # (Auto) 9.5 10^3/uL (1.5-6.6) H 04/22/21 17:18 Lymph # (Auto) 0.8 10^3/uL (1.5-3.5) L 04/22/21 17:18 [place] # (Auto) 0.6 10^3/uL (0.0-1.0) 04/22/21 17:18 Eos # (Auto) 0.1 10^3/uL (0.0-0.7) 04/22/21 17:18 Baso # (Auto) 0.0 10^3/uL (0.0-0.1) 04/22/21 17:18 Absolute Nucleated RBC 0.00 x10^3/uL 04/22/21 17:18 Nucleated RBC % 0.0 /100WBC 04/22/21 17:18 PT 11.7 secs (9.9-12.6) 04/22/21 17:18 INR 1.1 (0.8-1.2) 04/22/21 17:18 Sodium 133 mmol/L (135-145) L 04/22/21 17:18 Potassium 4.3 mmol/L (3.5-5.0) 04/22/21 17:18 Chloride 98 mmol/L (101-111) L 04/22/21 17:18 Carbon Dioxide 26 mmol/L (21-32) 04/22/21 17:18 Anion Gap 9.0 (6-13) 04/22/21 17:18 BUN 17 mg/dL (6-20) 04/22/21 17:18 Creatinine 0.7 mg/dL (0.4-1.0) 04/22/21 17:18 Estimated GFR (MDRD) 79 (>89) L 04/22/21 17:18 Glucose 104 mg/dL (70-100) H 04/22/21 17:18 Calcium 9.8 mg/dL (8.5-10.3) 04/22/21 17:18 Troponin I High Sens 5.2 ng/L (2.3-14.8) 04/23/21 06:22 TSH 6.65 uIU/mL (0.34-5.60) H 04/22/21 17:18 Free T4 0.81 ng/dL (0.58-1.64) 04/23/21 06:22 Urine Color DARK YELLOW 04/23/21 11:05 Urine Clarity CLEAR (CLEAR) 04/23/21 11:05 Urine pH 6.5 PH (5.0-7.5) 04/23/21 11:05 Ur Specific [place] 1.020 (1.002-1.030) 04/23/21 11:05 Urine Protein NEGATIVE mg/dL (NEGATIVE) 04/23/21 11:05 Urine Glucose (UA) NEGATIVE mg/dL (NEGATIVE) 04/23/21 11:05 Urine Ketones 15 mg/dL (NEGATIVE) H 04/23/21 11:05 Urine Occult Blood NEGATIVE (NEGATIVE) 04/23/21 11:05 Urine Nitrite NEGATIVE (NEGATIVE) 04/23/21 11:05 Urine Bilirubin NEGATIVE (NEGATIVE) 04/23/21 11:05 Urine Urobilinogen 0.2 (NORMAL) E.U./dL (NORMAL) 04/23/21 11:05 Ur Leukocyte Esterase TRACE (NEGATIVE) H 04/23/21 11:05 Urine RBC 0-5 /HPF (0-5) 04/23/21 11:05 Urine WBC 0-3 /HPF (0-5) 04/23/21 11:05 Ur Squamous Epith Cells FEW Squamous (<= Few) 04/23/21 11:05 Urine Bacteria Few /HPF (None Seen) 04/23/21 11:05 Urine Culture Comments INDICATED 04/23/21 11:05 Nasal Adenovirus (PCR) NOT DETECTED 04/22/21 21:53 Nasal B. parapertussis DNA (PCR) NOT DETECTED 04/22/21 21:53 Nasal Coronavir 229E PCR NOT DETECTED 04/22/21 21:53 Nasal Coronavir HKU1 PCR NOT DETECTED 04/22/21 21:53 Nasal Coronavir NL63 PCR NOT DETECTED 04/22/21 21:53 Nasal Coronavir OC43 PCR NOT DETECTED 04/22/21 21:53 Nasal Enterovir/Rhinovir PCR NOT DETECTED 04/22/21 21:53 Nasal Influenza B PCR NOT DETECTED 04/22/21 21:53 Nasal Influenza A PCR NOT DETECTED 04/22/21 21:53 Nasal Parainfluen 1 PCR NOT DETECTED 04/22/21 21:53 Nasal Parainfluen 2 PCR NOT DETECTED 04/22/21 21:53 Nasal Parainfluen 3 PCR NOT DETECTED 04/22/21 21:53 Nasal Parainfluen 4 PCR NOT DETECTED 04/22/21 21:53 Nasal RSV (PCR) NOT DETECTED 04/22/21 21:53 Nasal B.pertussis DNA PCR NOT DETECTED 04/22/21 21:53 Nasal C.pneumoniae (PCR) NOT DETECTED 04/22/21 21:53 Lino Human Metapneumo PCR NOT DETECTED 04/22/21 21:53 Nasal M.pneumoniae (PCR) NOT DETECTED 04/22/21 21:53 Nasal SARS-CoV-2 (PCR) NOT DETECTED 04/22/21 21:53 Blood Type O POSITIVE 04/22/21 17:18 Blood Type Recheck O POSITIVE 04/23/21 06:22 Antibody Screen NEGATIVE 04/22/21 17:18 ABX Reporting Has patient been on IV antibiotics over the past 48 hours?: No Current Medications - Current Medications Current Medications: Active Medications Acetaminophen (Acetaminophen 500 Mg Tablet) 1,000 mg PO BID LOGAN Last Admin: 04/23/21 09:07 Dose: 1,000 mg Documented by: Sodium Chloride (Normal Saline 0.9%) 1,000 mls @ 100 mls/hr IV ONCE ONE Stop: 04/23/21 16:27 Last Admin: 04/23/21 06:42 Dose: 100 mls/hr Documented by: Ketorolac Tromethamine (Ketorolac 15 Mg/Ml Vial) 15 mg IVP Q6HR PRN PRN Reason: PAIN Stop: 04/27/21 23:19 Last Admin: 04/23/21 05:38 Dose: 15 mg Documented by: Morphine Sulfate (Morphine 2 Mg/Ml Carpuject) 2 mg IVP Q2HR PRN PRN Reason: Pain 8 to 10 Last Admin: 04/23/21 01:35 Dose: 2 mg Documented by: Ondansetron HCl (Ondansetron 4 Mg/2 Ml Vial) 4 mg IVP Q6HR PRN PRN Reason: Nausea / Vomiting Polyethylene Glycol (Polyethylene Glycol 3350 17 Gm Packet) 17 gm PO DAILY [facility] Last Admin: 04/23/21 09:06 Dose: 17 gm Documented by: Prochlorperazine Edisylate (Prochlorperazine 10 Mg/2 Ml Vial) 10 mg IVP Q6HR PRN PRN Reason: Nausea / Vomiting Sodium Chloride (Sodium Chloride Flush 0.9% 10 Ml Syringe) 10 ml IVP PRN PRN PRN Reason: NEEDED PER PROVIDER ORDERS Sodium Chloride (Sodium Chloride Flush 0.9% 10 Ml Syringe) 10 ml IVP 01 00,0900,1700 [facility] Last Admin: 04/23/21 09:09 Dose: Not Given Documented by: Simvastatin 0 mg DAILY 08/08/16 traMADol [Ultram] 1 tab DAILY PRN 04/22/21 Acetaminophen [Tylenol] 1,000 mg PO TID 04/23/21
[2021-04-24] MEDS: KETOROLAC 15 MG/ML VIAL IVP PRN ×2 (00:50→08:39)
[2021-04-24] MEDS: MORPHINE 2 MG/ML CARPUJECT IVP PRN (04:51)
[2021-04-24 06:44] LABS: BASOPHILS % (AUTO) 0.4 %; EOSINOPHILS # (AUTO) 0.2 10^3/uL (0.0-0.7); EOSINOPHILS % (AUTO) 2.7 %; HCT - HEMATOCRIT 34.6 % (37.0-47.0); HGB - HEMOGLOBIN 11.4 g/dL (12.0-16.0); LYMPHOCYTES # (AUTO) 0.6 10^3/uL (1.5-3.5); MEAN CORPUSCULAR HEMOGLOBIN 33.2 pg (27.0-31.0); MEAN CORPUSCULAR HGB CONC 32.9 g/dL (32.0-36.0); MEAN CORPUSCULAR VOLUME 100.9 fL (81.0-99.0); MEAN PLATELET VOLUME 8.6 fL (7.9-10.8); MONOCYTES # (AUTO) 0.6 10^3/uL (0.0-1.0); MONOCYTES % (AUTO) 8.6 %; NEUTROPHILS # (AUTO) 5.5 10^3/uL (1.5-6.6); NEUTROPHILS % (AUTO) 78.7 %; PLT - PLATELET COUNT 132 10^3/uL (130-450); RED BLOOD COUNT 3.43 10^6/uL (4.20-5.40); RED CELL DISTRIBUTION WIDTH 12.5 % (12.0-15.0)
[2021-04-24 06:53] LABS: CALCIUM 8.7 mg/dL (8.5-10.3); CREATININE 0.5 mg/dL (0.4-1.0); POTASSIUM 3.8 mmol/L (3.5-5.0)
[2021-04-24] MEDS: polyethylene glycoL 3350 17 GM PACKET PO SCH (08:38)
[2021-04-24] MEDS: ACETAMINOPHEN 500 MG TABLET PO SCH (08:38)
[2021-04-24] MEDS: SODIUM CHLORIDE FLUSH 0.9% 10 ML SYRINGE IVP SCH (08:39)
--- NOTE | 2021-04-24 11:31 | PROVIDER PROGRESS NOTE ---
Subjective - Prog Note Date Prog Note Date: 04/24/21 Prog Note Time: 11:28 - Subjective Subjective: She wants to go home. She is fretful. States that she is independent of that with the help of her son she can get there. But she has not discussed with her son what her care would be she just assumes he would take care of her. He already lives with she and her . Other than the leg pain, she denies chest pain, palpitations, nausea, shortness of breath. Orthostatic blood pressures were done. Supine she is 110/60. Sitting she is 108/63. Standing she is 106/62. Pulse rate goes from 78->>89>>93 Again, in reviewing her record, syncope is not a new event for her. Is been going on for over a year. 2 weeks ago she was seen in the emergency room for syncope. When she regained consciousness she had nausea and vomiting. In the emergency room she received IV hydration and sent home. This was not our facility. She again had syncope on April 22. Seen in the ER. 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 She had a pulse, respirations. She just became limp and unconscious. Afterward she had an episode of nausea and emesis. Current Medications - Current Medications Current Medications: Active Medications Acetaminophen (Acetaminophen 500 Mg Tablet) 1,000 mg PO BID [facility] Last Admin: 04/24/21 08:38 Dose: 1,000 mg Documented by: Ketorolac Tromethamine (Ketorolac 15 Mg/Ml Vial) 15 mg IVP Q6HR PRN PRN Reason: PAIN Stop: 04/27/21 23:19 Last Admin: 04/24/21 08:39 Dose: 15 mg Documented by: Morphine Sulfate (Morphine 2 Mg/Ml Carpuject) 2 mg IVP Q2HR PRN PRN Reason: Pain 8 to 10 Last Admin: 04/24/21 04:51 Dose: 2 mg Documented by: Ondansetron HCl (Ondansetron 4 Mg/2 Ml Vial) 4 mg IVP Q6HR PRN PRN Reason: Nausea / Vomiting Polyethylene Glycol (Polyethylene Glycol 3350 17 Gm Packet) 17 gm PO DAILY [facility] Last Admin: 04/24/21 08:38 Dose: 17 gm Documented by: Prochlorperazine Edisylate (Prochlorperazine 10 Mg/2 Ml Vial) 10 mg IVP Q6HR PRN PRN Reason: Nausea / Vomiting Sodium Chloride (Sodium Chloride Flush 0.9% 10 Ml Syringe) 10 ml IVP PRN PRN PRN Reason: NEEDED PER PROVIDER ORDERS Sodium Chloride (Sodium Chloride Flush 0.9% 10 Ml Syringe) 10 ml IVP 0100,0900,1700 LOGAN Last Admin: 04/24/21 08:39 Dose: 10 ml Documented by: Simvastatin 0 mg DAILY 08/08/16 traMADol [Ultram] 1 tab DAILY PRN 04/22/21 Acetaminophen [Tylenol] 1,000 mg PO TID 04/23/21 Objective - Vital Signs/Intake & Output Reviewed Vital Signs: Yes Vital Signs: Vital Signs x48h Temp Pulse Resp BP Pulse Ox 04/24/21 08:00 36.7 C 74 20 140/69 H 93 04/24/21 05:10 36.6 C 61 16 149/73 H 96 Intake & Output: Intake & Output 04/21/21 04/22/21 04/23/21 04/24/21 23:59 23:59 23:59 23:59 Intake Total 250 2320 170 Output Total 1550 Balance 250 770 170 - Objective General Appearance: positive: No acute distress, Alert, Other (4 foot 10 inch elderly female who weighs 48 kg. She does appear quite thin, and emotionally she is quite fretful and unhappy at being here and wants to go home.) Eyes Bilateral: positive: PERRL, EOMI ENT: positive: No signs of dehydration Neck: positive: No JVD. negative: Stiff neck Respiratory: positive: No respiratory distress. negative: Wheezes, Rales, Rhonchi Cardiovascular: positive: Regular rate & rhythm, Systolic murmur, Other (Since admission on April 22, telemetry is continued to show sinus rhythm, no arrhythmias). negative: Gallop/S4, Friction rub Abdomen: positive: Non-tender, No organomegaly, Nml bowel sounds, No distention Skin: positive: Warm, Dry Extremities: positive: Full ROM (Except for the affected leg), No pedal edema Neurologic/Psychiatric: positive: Oriented x3 (But she is very forgetful. At times cannot remember dates of events. Sometimes gets her fax confused.), CN's nml (2-12), Motor nml - Lab Results Fish Bones: 04/24/21 06:10 04/24/21 06:10 Other Labs: Lab Results x24hrs 04/24/21 04/24/21 04/23/21 Range/Units 06:10 06:10 11:05 WBC 7.0 (4.8-10.8) x10^3/uL RBC 3.43 L (4.20-5.40) 10^6/uL Hgb 11.4 L (12.0-16.0) g/dL Hct 34.6 L (37.0-47.0) % MCV 100.9 H (81.0-99.0) fL MCH 33.2 H (27.0-31.0) pg MCHC 32.9 (32.0-36.0) g/dL RDW 12.5 (12.0-15.0) % Plt Count 132 (130-450) 10^3/uL MPV 8.6 (7.9-10.8) fL Neut # (Auto) 5.5 (1.5-6.6) 10^3/uL Lymph # (Auto) 0.6 L (1.5-3.5) 10^3/uL Swift # (Auto) 0.6 (0.0-1.0) 10^3/uL Eos # (Auto) 0.2 (0.0-0.7) 10^3/uL Baso # (Auto) 0.0 (0.0-0.1) 10^3/uL Absolute Nucleated RBC 0.00 x10^3/uL Nucleated RBC % 0.0 /100WBC Sodium 135 (135-145) mmol/L Potassium 3.8 (3.5-5.0) mmol/L Chloride 104 (101-111) mmol/L Carbon Dioxide 23 (21-32) mmol/L Anion Gap 8.0 (6-13) BUN 12 (6-20) mg/dL Creatinine 0.5 (0.4-1.0) mg/dL Estimated GFR (MDRD) 117 (>89) Glucose 97 (70-100) mg/dL Calcium 8.7 (8.5-10.3) mg/dL Urine Color DARK YELLOW Urine Clarity CLEAR (CLEAR) Urine pH 6.5 (5.0-7.5) PH Ur Specific Pilger 1.020 (1.002-1.030) Urine Protein NEGATIVE (NEGATIVE) mg/dL Urine Glucose (UA) NEGATIVE (NEGATIVE) mg/dL Urine Ketones 15 H (NEGATIVE) mg/dL Urine Occult Blood NEGATIVE (NEGATIVE) Urine Nitrite NEGATIVE (NEGATIVE) Urine Bilirubin NEGATIVE (NEGATIVE) Urine Urobilinogen 0.2 (NORMAL) (NORMAL) E.U./dL Ur Leukocyte Esterase TRACE H (NEGATIVE) Urine RBC 0-5 (0-5) /HPF Urine WBC 0-3 (0-5) /HPF Ur Squamous Epith Cells FEW Squamous (<= Few) Urine Bacteria Few (None Seen) /HPF Urine Culture Comments INDICATED Assessment/Plan - Problem List (1) Syncope Impression: pt has hx of syncope, had syncope at home and at ER of hospital. Her orthostatics do show her to be have orthostatic hypotension. Preliminary echocardiogram has left ventricular wall thickness normal. Ejection fraction 60 to 65%. No regional wall motion abnormalities. The right ventricle and atria are normal. There is no valvular heart disease. Telemetry for 48 hours has not had any arrhythmia. Troponin, high-sensitivity, has been very low. Almost undetectable. Plan: Patient is ready for discharge from more syncope perspective. Now we need to work on placement. 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 I will asked them to touch base with the son and family. (2) Falls Assessment/Plan: pt has falls at home which lead pt has multiple fractures. (3) Acetabular fracture Qualifiers: Encounter type: initial encounter Sublocation of acetabulum: anterior wall Fracture type: closed Fracture alignment: nondisplaced Laterality: left Qualified Code(s): S32.415A - Nondisplaced fracture of anterior wall of left acetabulum, initial encounter for closed fracture Assessment/Plan: CAT scan show patient had left acetabular, Sacrum, symphysis fracture from pt's fall. We will continue pain control, continue PT and OT evaluation and treatment, consult with social work for replacement She is to be nonweightbearing on the left nondisplaced acetabular fracture. She has mild to moderate pain. She lives in a multilevel house but can live on the main level and not use steps. When she is at home she is independent. Here she is having to use a front wheel walker. She requires contact-guard assist x2 for standing and holding onto the walker. Pain increases. Initially she started to place some weight on the left leg but then she follows cues to shift weight to her right leg and off her left leg. She is able to walk 3 feet to the bedside commode, 3 feet to the bedside recliner using the front wheel walker and contact-guard assist x2. Following verbal cues. from PT note yesterday: Pt. is a cognizant, cooperative 85 y.o,. F, normally independent admitted w/L acetabular fx and syncope; pt. presents today w/good ability to stand and step w/walker but needs some training to maintain her NWB restriction, L LE, for now; pt. has support of her son at home who can provide additonal care, if needed, upon returning home. Pt. shows adequate strength for trasnfes and walking, bed mobility; she will benefit from continued PT in hosptal while she is here; recommend pt. d/c home via POV w/her son and f/u w/HHPT to work on improving her indepnedence, strength, and safety w/all functional tasks toward her stated baseline function of independence. Will see pt. 1-2x/day in hospital for PT. Qualifiers: Syncope type: vasovagal syncope Qualified Code(s): R55 - Syncope and collapse
--- NOTE | 2021-04-24 14:35 | Discharge Plan ---
Discharge Plan Problem Reviewed?: Yes Disposition: 06 Home Health Service Condition: Stable Diet: Regular Activity Restrictions: nonweight bearing on leg Shower Restrictions: No Driving Restrictions: Yes (no driving) Assistance Devices: Walker Weight Bearing: Toe Touch (at most of affected fractured leg) Health Concerns: You have a history of fainting and have already fainted a few times this year. You did it again and came to the ER because of that and pain in your hip. You have an acetabular fracture of your hip. We also did a work up for why you faint and it may be due to the fact that your blood pressure drops when you stand for too long. If it drops for too long of a time you faint. The ultrasound of your heart was normal. Close to 48 hours of watching your heart rhythm was normal. You did not have a stroke. You now need to wait for your fracture to heal. Plan of Treatment: 1. You need to try To be nonweightbearing for the sake of your pelvic fractures and the acetabular fracture. You can be toe-touch at times. Use a walker at all times. 2. We will be sending you home with a home health referral. That way the home health physical therapist can go to your house and help you stay safe, and to do the right exercises. 3. Please take calcium tablet with each meal. And 1 large vitamin D capsule of 800 international units a day. 4. Please see your primary care provider in the next 1 to 2 weeks for follow- up. They need to go over all of your work-up. You need to tell her that you have fainting due to low blood pressure from standing too long. Care Goals: To heal your fractures and be able to walk normally without pain. And to also not have any more episodes of fainting. Assessment: patient understands problems and plan. Glad to be going home and not to facility for rehab. No Smoking: If you smoke, Please STOP! Call for help.
--- NOTE | 2021-04-24 14:46 | Ultrasound Report ---
PROCEDURE: Carotid Doppler Complete INDICATIONS: syncope TECHNIQUE: Color and pulse Doppler interrogation was performed of both carotid systems, with image documentation and velocity measurements. COMPARISON: None. FINDINGS: Right side: Common carotid artery peak systolic velocity: 81 cm/sec. Internal carotid artery peak systolic velocity: 76 cm/sec. Internal carotid artery end diastolic velocity: 26 cm/sec. External carotid artery peak systolic velocity: 47 cm/sec. ICA/CCA peak systolic ratio: 0.93 . Landaverde scale imaging description: Minimal plaque. Percent internal carotid artery stenosis: Less than 50% . Vertebral artery: Flow direction is antegrade. Left side: Common carotid artery peak systolic velocity: 66 cm/sec. Internal carotid artery peak systolic velocity: 65 cm/sec. Internal carotid artery end diastolic velocity: 22 cm/sec. External carotid artery peak systolic velocity: 46 cm/sec. ICA/CCA peak systolic ratio: 0.98 . Landaverde scale imaging description: Minimal plaque. Percent internal carotid artery stenosis: Less than 50% . Vertebral artery: Flow direction is antegrade. IMPRESSION: Minimal atherosclerotic disease with no significant stenosis. The estimate of stenosis included in the report of the imaging study was calculated using the NASCET method Reviewed by: Phoenix Winston on 04/24/2021 2:44 PM PDT Approved by: Phoenix Winston on 04/24/2021 2:44 PM PDT Station ID: [id number]
--- NOTE | 2021-04-24 14:48 | DISCHARGE SUMMARY ---
"Discharge Summary Admit Date: 04/22/21 Discharge Date: 04/24/21 Discharging Provider: Piyush Pastrana Primary Care Provider: Elif Chester MD [facility] Code Status: Do Not Attempt Resuscitation Condition at Discharge: Stable Discharge Disposition: Home Health Service - DIAGNOSES Discharge Diagnoses with Status of Each Condition: 1. Probable orthostatic versus vasovagal syncope 2. History of multiple falls 3. Left acetabular, sacral, and symphysis pubic fracture 4. Right ovarian cyst that needs further evaluation 5. Left groin hematoma and pelvic sidewall hematoma 6. Cognitive deficit of aging 7. Spinal stenosis of the lumbar spine - HPI History of Present Illness: Per admit H&P: The patient is a pleasant 85-year-old white female who is independent with activities of daily living still drives and cooks. Reviewing the past medical record she does have history of syncope at least dating back to a year however she cannot provide much detail about it and does not remember undergoing tests or evaluations. She was seen 2 weeks ago for a syncopal episode which was described as passing out and when regaining consciousness having an episode of nausea and vomiting. She was felt dehydrated received IV hydration and was sent home from the ER. This was at a different facility as I did not find the record in our hospital and this history was reported by our ER physician. On the afternoon of April 22 the patient was gardening, weeding at home when she fell hard on her left side and injured her hip. 911 was called and at the ER the patient was found with nondisplaced left acetabular fracture. As this was a nonoperative fracture discharge from the ER was planned. Patient was ready to get discharged, was already off phototypesetting equipment monitor when she again had a witnessed syncopal episode which lasted about 45 seconds. During this time patient was not on the monitor. She had a pulse and she had respirations, she was just unconscious; went limp as it was described. When she regained consciousness she again had an episode of nausea and emesis. EKG showed sinus rhythm with left anterior fascicular block. Troponin was negative. Admission was requested for syncope work-up and close monitoring. I examined the patient in the ER. She got some oxycodone prior to my visit and was a bit somnolent. She confirmed the above listed history. She did not report chest pain, shortness of breath, dizziness or other symptoms prior to or after the syncopal episodes. She confirmed having episodes of passing out with subsequent nausea and vomiting but other than that she could not provide much detail. Regarding her tramadol use she stated she takes it for arthritis, on S eptember 16 she did not take it at all. She takes it only as needed not more often than twice a day. Did not notice any side effects or adverse effects or the syncopal episodes being related to tramadol. 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 hip pelvis x-ray with questionable nondisplaced crack of the trochanteric region of the left hip. 2. Lower extremity CT with fracture of the left anterior acetabulum without significant displacement. Nondisplaced fracture of the left sacrum. Suspect fracture of the left pubic symphysis. Left groin hematoma and pelvic sidewall hematoma. Right ovarian cyst measuring 4.1 cm. Recommend further evaluation. 3. Head CT. No acute intracranial abnormality. 4. Chest x-ray without acute cardiopulmonary abnormality. #5 carotid Doppler study with minimal atherosclerotic disease with no significant stenosis. 5. Over 24 hours of telemetry without any arrhythmia 6. Preliminary echocardiogram report. Must be verified by primary care thiago christy for final report. Underlying left ventricular cavity size is decreased. Overall left ventricular systolic function normal with an ejection fraction of 60 to 65%. No regional wall motion abnormalities. Left and right atria were normal size. Right ventricle normal in size and function. No significant valvular heart disease. - HOSPITAL COURSE Hospital Course: The patient was evaluated by physical therapy. Over the course of 2 days she was able to be taught how to touch to weight-bear. And preferentially hop on the nonaffected leg to avoid weightbearing on the broken leg. She has mild memory impairment and can get fretful and forgetful. Work-up for syncope ensued. She is orthostatic. But echocardiogram, telemetry, CT of the head, and carotid Dopplers were all normal. However she has a right ovarian cyst that needs to be evaluated in the outpatient setting. After 2 days of evaluation and treatment with physical therapy they felt that the patient was able to go home. I have verified with orthopedics over a phone call, because they were unable to do formal consultation, that the patient was to be preferentially nonweightbearing on the affected leg with the acetabular fracture. However, that might be impossible and touch toe weightbearing was allowed. I will be ordering home health with physical therapy because the patie nt will be unable to leave the house due to weightbearing restrictions. At discharge temperature was 36.7. Pulse 74. Blood pressure 140/69. She is 4 foot 10 inches tall and weighs 48 kg. Orthostatics were done and supine blood pressure was 110/60. Sitting was 108/63. Standing is 106/62. Her pulse target 78, climbs to 89 with sitting, and is 93 with standing. Neck is supple. No JVD. Lungs are clear to auscultation and percussion. She has a regular rate and rhythm. The abdomen is soft, nontender. Normal bowel sounds. Pain is present as I walk her pelvis in the bed. She is unable to move her left hip very well without grimacing with pain and asking to please stop the exam. She does not have any edema present. She is occasionally incontinent and a brief and pad is used. Neurologically she is oriented to person place and time. However can be occasionally forgetful and sometimes needs mild prompting. However she is very cooperative, and follows prompting quite easily. Greater than 30 minutes was spent coordinating discharge. We are asking her to follow-up with her primary care provider Elif Chester MD . She will need follow-up for the right ovarian cyst, and follow-up for any treatment of osteopenia/osteoporosis they may have in mind. At this time for this 85-year- old I would recommend calcium 3 times a day and vitamin D. I would also request evaluation for orthostatic syncope if it keeps on happening. She may need a tilt table test, or be started on midodrine. Social work verified that the patient can return safely to home with the supportive care of her son Benji. Discharge planning went over what would be required and he was accepting of taking his mom home. - ALLERGIES Allergies/Adverse Reactions: Allergies Allergy/AdvReac Type Severity Reaction Status Date / Time No Known Drug Allergies Allergy Verified 04/22/21 15:31 - MEDICATIONS Home Medications: Ambulatory Orders Medication Instructions Recorded Confirmed Simvastatin 0 mg DAILY 08/08/16 traMADol [Ultram] 1 tab DAILY PRN 04/22/21 04/22/21 Acetaminophen [Tylenol] 1,000 mg PO TID 04/23/21 04/23/21 - LABS Result Diagrams: 04/24/21 06:10 04/24/21 06:10"
--- NOTE | 2021-04-24 14:52 | Ultrasound Report ---
PROCEDURE: Pelvic w/Transvag+Doppler Comp INDICATIONS: ovarian cyst TECHNIQUE: Real-time scanning was performed of the pelvic organs, with image documentation. Additional endovagi nal scanning was necessary due to incomplete visualization of the adnexal and endometrial structures by transabdominal scanning. COMPARISON: None. FINDINGS: No pathologic free abdominal or pelvic fluid. Uterus: The uterus measures 5.8 x 2.0 x 4.5 cm. Multiple calcified fibroids are noted. The endometriu m is normal measuring 8.4 mm. Ovaries: The right ovary has a normal size measuring 3.1 x 1.6 x 3.2 cm. There is a 2.1 x 1.4 x 1.9 cm simple right ovarian cyst. The left ovary is normal in size measuring 2.1 x 0.8 x 1.9 cm. Adnexa: No adnexal fluid. IMPRESSION: 1. No acute ultrasound abnormality. 2. 2.1 x 0.8 x 1.9 cm simple left ovarian cyst. Reviewed by: Phoenix Winston on 04/24/2021 2:51 PM PDT Approved by: Phoenix Winston on 04/24/2021 2:51 PM PDT Station ID: [id number]
[2021-04-24 15:30] VITALS: BP 140/71
== END 2021-04-24 15:10 | disposition home health service (06) | DRG 312 ==
LOC: ED 15:26 → OBSVTOIN 23:22 → MS2 23:22
PROVIDERS: ADMIT Internal Medicine; ATTEND Specialist
DX: I95.1 Orthostatic hypotension (principal); S32.415A Nondisplaced fracture of anterior wall of left acetabulum, initial encounter for closed fracture; S32.10XA Unspecified fracture of sacrum, initial encounter for closed fracture; R11.10 Vomiting, unspecified; S32.502A Unspecified fracture of left pubis, initial encounter for closed fracture; R55 Syncope and collapse; W18.30XA Fall on same level, unspecified, initial encounter; Y93.H2 Activity, gardening and landscaping; Y92.007 Garden or yard of unspecified non-institutional (private) residence as the place of occurrence of the external cause; R41.81 Age-related cognitive decline; N83.201 Unspecified ovarian cyst, right side; I10 Essential (primary) hypertension; Z20.822 Contact with and (suspected) exposure to COVID-19; E78.00 Pure hypercholesterolemia, unspecified; G89.29 Other chronic pain; M48.061 Spinal stenosis, lumbar region without neurogenic claudication; M19.90 Unspecified osteoarthritis, unspecified site; M81.0 Age-related osteoporosis without current pathological fracture; Z66 Do not resuscitate; Z79.899 Other long term (current) drug therapy; Z91.81 History of falling
CPT/HCPCS: 36415; 70450; 71045; 73502; 73700; 76830; 76856; 80048; 81001; 84439; 84443; 84484; 85025; 85610; 86850; 86900; 86901; 87086; 87631; 93005; 93306; 93880; 93975; 97161; 97165; 97530; 99284; 99285; A9270; 0202U

== ENCOUNTER 2021-05-20 15:14 | Outpatient (CLI) | payer MEDICARE, OTHER ==
--- NOTE | 2021-05-20 15:44 | DEXA Report ---
PROCEDURE: DEXA Spine and/or Hip INDICATIONS: OSTEOPOROSIS TECHNIQUE: Dual energy x-ray absorptiometry (DXA) was performed on a Values of n System. Regions measur ed are the AP Spine, femoral neck, and if needed forearm. COMPARISON: None. FINDINGS: Lumbar Spine: Bone Mineral Density 1.021 g/cm/cm,T score -1.5, osteopenia Left Femoral Neck: Bone Mineral Density 0.573 g/cm/cm, T score -3.4, osteoporosis (T score greater or equal to -1.0: NORMAL) (T score from -1.1 to -2.4: OSTEOPENIA) (T score less than or equal to -2.5 to: OSTEOPOROSIS) Impression: Bone mineral density as detailed above Patients with diagnosis of osteoporosis or osteopenia should have regular bone mineral density assess ment. For those eligible for Medicare, routine testing is allowed once every 2 years. Testing frequ ency can be increased for patients who have rapidly progressing disease or for those who are receivin g medical therapy to restore bone mass. Reviewed by: Kevin Cannon MD on 05/20/2021 3:43 PM PDT Approved by: Kevin Cannon MD on 05/20/2021 3:43 PM PDT Station ID: [id number]
== END 2021-05-20 15:15 | disposition home or self-care (01) ==
LOC: DI 15:14
PROVIDERS: ATTEND Internal Medicine
DX: M80.00XD Age-related osteoporosis with current pathological fracture, unspecified site, subsequent encounter for fracture with routine healing (principal)

== ENCOUNTER 2021-07-16 12:09 | Outpatient (CLI) | payer MEDICARE ==
[2021-07-16 12:37] LABS: BASOPHILS % (AUTO) 0.7 %; EOSINOPHILS # (AUTO) 0.1 10^3/uL (0.0-0.7); EOSINOPHILS % (AUTO) 1.1 %; HCT - HEMATOCRIT 40.5 % (37.0-47.0); HGB - HEMOGLOBIN 13.4 g/dL (12.0-16.0); LYMPHOCYTES # (AUTO) 1.3 10^3/uL (1.5-3.5); LYMPHOCYTES % (AUTO) 21.8 %; MEAN CORPUSCULAR HEMOGLOBIN 32.8 pg (27.0-31.0); MEAN CORPUSCULAR HGB CONC 33.1 g/dL (32.0-36.0); MEAN CORPUSCULAR VOLUME 99.3 fL (81.0-99.0); MEAN PLATELET VOLUME 8.5 fL (7.9-10.8); MONOCYTES # (AUTO) 0.6 10^3/uL (0.0-1.0); MONOCYTES % (AUTO) 9.9 %; NEUTROPHILS # (AUTO) 4.1 10^3/uL (1.5-6.6); NEUTROPHILS % (AUTO) 66.2 %; PLT - PLATELET COUNT 199 10^3/uL (130-450); RED BLOOD COUNT 4.08 10^6/uL (4.20-5.40); RED CELL DISTRIBUTION WIDTH 12.6 % (12.0-15.0); WHITE BLOOD COUNT 6.1 x10^3/uL (4.8-10.8)
[2021-07-16 12:46] LABS: ALBUMIN 4.6 g/dL (3.2-5.5); CALCIUM 9.7 mg/dL (8.5-10.3); CREATININE 0.8 mg/dL (0.4-1.0); PHOSPHORUS 3.5 mg/dL (2.5-4.6); POTASSIUM 4.1 mmol/L (3.5-5.0)
== END 2021-07-16 12:10 | disposition home or self-care (01) ==
LOC: LAB 12:09
PROVIDERS: ATTEND Internal Medicine
DX: M80.00XD Age-related osteoporosis with current pathological fracture, unspecified site, subsequent encounter for fracture with routine healing (principal); I10 Essential (primary) hypertension
CPT/HCPCS: 36415; 80069; 83735; 85025

== ENCOUNTER 2021-09-16 10:49 | Outpatient (CLI) | payer OTHER ==
[2021-09-16 11:24] LABS: ALBUMIN 4.5 g/dL (3.2-5.5); CALCIUM 9.5 mg/dL (8.5-10.3); CREATININE 0.7 mg/dL (0.4-1.0); PHOSPHORUS 3.1 mg/dL (2.5-4.6); POTASSIUM 3.9 mmol/L (3.5-5.0)
[2021-09-16 11:36] LABS: THYROID STIMULATING HORMONE 3.27 uIU/mL (0.34-5.60)
== END 2021-09-16 10:50 | disposition home or self-care (01) ==
LOC: LAB 10:49
PROVIDERS: ATTEND Internal Medicine
DX: I10 Essential (primary) hypertension (principal); F01.50 Vascular dementia, unspecified severity, without behavioral disturbance, psychotic disturbance, mood disturbance, and anxiety
CPT/HCPCS: 36415; 80069; 83921; 84443

== ENCOUNTER 2022-02-23 11:18 | Outpatient (CLI) | payer OTHER ==
[2022-02-23 11:30] LABS: BASOPHILS % (AUTO) 0.6 %; EOSINOPHILS # (AUTO) 0.1 10^3/uL (0.0-0.7); EOSINOPHILS % (AUTO) 1.8 %; HCT - HEMATOCRIT 41.2 % (37.0-47.0); HGB - HEMOGLOBIN 13.9 g/dL (12.0-16.0); LYMPHOCYTES # (AUTO) 1.3 10^3/uL (1.5-3.5); MEAN CORPUSCULAR HEMOGLOBIN 33.2 pg (27.0-31.0); MEAN CORPUSCULAR HGB CONC 33.7 g/dL (32.0-36.0); MEAN CORPUSCULAR VOLUME 98.3 fL (81.0-99.0); MEAN PLATELET VOLUME 8.5 fL (7.9-10.8); MONOCYTES # (AUTO) 0.5 10^3/uL (0.0-1.0); MONOCYTES % (AUTO) 8.1 %; NEUTROPHILS # (AUTO) 4.7 10^3/uL (1.5-6.6); NEUTROPHILS % (AUTO) 70.2 %; PLT - PLATELET COUNT 219 10^3/uL (130-450); RED BLOOD COUNT 4.19 10^6/uL (4.20-5.40); RED CELL DISTRIBUTION WIDTH 12.8 % (12.0-15.0); WHITE BLOOD COUNT 6.7 x10^3/uL (4.8-10.8)
[2022-02-23 11:43] LABS: ALBUMIN 4.6 g/dL (3.2-5.5); ALBUMIN/GLOBULIN RATIO 1.3 (1.0-2.2); BILIRUBIN,TOTAL 0.9 mg/dL (0.2-1.0); CALCIUM 9.9 mg/dL (8.5-10.3); CREATININE 0.7 mg/dL (0.4-1.0); TOTAL PROTEIN 8.1 g/dL (6.7-8.2)
[2022-02-24 04:08] LABS: VITAMIN D 25-HYDROXY 29.1 ng/mL (30.0-100.0)
== END 2022-02-23 11:19 | disposition home or self-care (01) ==
LOC: LAB 11:18
PROVIDERS: ATTEND Internal Medicine
DX: I10 Essential (primary) hypertension (principal); M81.0 Age-related osteoporosis without current pathological fracture; F01.50 Vascular dementia, unspecified severity, without behavioral disturbance, psychotic disturbance, mood disturbance, and anxiety
CPT/HCPCS: 36415; 80053; 82306; 83921; 85025